=== PATIENT | male | born 1950 | race Caucasian/White ===

== ENCOUNTER 2019-09-26 11:23 | Observation (INO) | payer OTHER ==
[~2019-09-26] VITALS: Ht 177.8 cm; Wt 98.1 kg
[2019-09-26 12:06] LABS: BASOPHILS # (AUTO) 0.02 x10^3/uL (0-0.1); BASOPHILS % (AUTO) 1 % (0-1); EOSINOPHILS # (AUTO) 0.21 x10^3/uL (0-0.4); EOSINOPHILS % (AUTO) 5 % (1-7); LYMPHOCYTES # (AUTO) 1.39 x10^3/uL (1-3.4); LYMPHOCYTES % (AUTO) 36 % (22-44); MD NO; MEAN CORPUSCULAR HEMOGLOBIN 29.3 pg (27.5-34.5); MEAN CORPUSCULAR HGB CONC 33.5 g/dL (33.2-36.2); MEAN CORPUSCULAR VOLUME 87.5 fL (81-97); MONOCYTES % (AUTO) 8 % (2-9); NEUTROPHILS # (AUTO) 1.95 x10^3/uL (1.8-6.8); NEUTROPHILS % (AUTO) 50 % (42-75); PLATELET COUNT 141 x10^3/uL (130-400); RED BLOOD COUNT 4.81 x10^6/uL (4.38-5.82)
[2019-09-26 12:19] LABS: ALANINE AMINOTRANSFERASE 22 U/L (12-78); ALBUMIN 3.7 g/dL (3.4-5.0); ANION GAP 6 mmol/L (5-15); CALCIUM 9.1 mg/dL (8.5-10.1); CHLORIDE 106 mmol/L (98-107); CREATININE 1.18 mg/dL (0.7-1.3)
[2019-09-26 12:21] LABS: ALKALINE PHOSPHATASE 49 U/L (45-117); BILIRUBIN,TOTAL 1.1 mg/dL (0.2-1.0)
[2019-09-26] MEDS ORDERED: SODIUM CHLORIDE FLUSH 10ML SYR IVF ONE (13:00)
--- NOTE | 2019-09-26 13:31 | NUR ---
PT BIB [facility] FOR [facility]. FAMILY SAYS HE "GETS DIZZY AND THEN FALLS. AFTER THESE THINGS HAPPEN HE SEEMS CONFUSED FOR A WHILE BEFORE RETURNING TO BASELINE". PT WAS A0X1 FOR EMS. UPON ARRIVAL HE WAS AOX3. PT IS HOOKED UP TO TWISTER TENDER. BLANKET PROVIDED.
--- NOTE | 2019-09-26 14:22 | NUR ---
PT RESTING IN [facility]. ADMITTED DOCTOR IN ROOM AT THIS TIME
[2019-09-26] MEDS ORDERED: GLUCAGON 1 MG IM PRN (15:00)
[2019-09-26] MEDS ORDERED: DEXTROSE 4 GM TAB.CHEW PO PRN (15:00)
[2019-09-26] MEDS ORDERED: CYCLOBENZAPRINE 10 MG TABLET PO PRN (15:00)
[2019-09-26] MEDS ORDERED: GABAPENTIN 300 MG CAPSULE PO PRN (15:00)
[2019-09-26] MEDS ORDERED: NITROGLYCERIN 0.4 MG BOTTLE (25 TABS) SL PRN (15:00)
[2019-09-26] MEDS ORDERED: DEXTROSE 50%, 50ML SYRINGE IVPush PRN (15:00)
[2019-09-26] MEDS ORDERED: NITROGLYCERIN 0.4 MG/SPRAY SL PRN (15:00)
[2019-09-26] MEDS ORDERED: ACETAMINOPHEN 325 MG TABLET PO PRN (15:00)
[2019-09-26] MEDS: INSULIN LISPRO 100 UNITS/ML, PEN SQ-INSULIN SCH ×2 (16:00→21:38)
[2019-09-26 16:55] VITALS: BP 120/69
[2019-09-26 19:51] VITALS: BP 144/70
[2019-09-26] MEDS: SODIUM CHLORIDE FLUSH 10ML SYR IVF SCH ×2 (21:00→21:38)
[2019-09-26 21:20] VITALS: BP 136/72
[2019-09-26 21:25] VITALS: BP 109/65
[2019-09-26] MEDS ORDERED: DIVA500T17 PO (22:43)
[2019-09-26] MEDS ORDERED: POLY17PO PO (22:43)
[2019-09-26] MEDS ORDERED: METF500T27 PO (22:43)
[2019-09-26] MEDS ORDERED: MORP-29 PO ×2 (22:43)
[2019-09-26] MEDS ORDERED: CLOP75TA PO (22:43)
[2019-09-26] MEDS ORDERED: CHOL10003 PO (22:43)
[2019-09-26] MEDS ORDERED: DEXT15DR18 EACHEYE (22:43)
[2019-09-26] MEDS ORDERED: CYAN100028 PO (22:43)
[2019-09-26] MEDS ORDERED: NALO4SPR NS (22:43)
[2019-09-26] MEDS ORDERED: MELA3TAB56 PO (22:43)
[2019-09-26] MEDS ORDERED: ACET325T26 PO (22:43)
[2019-09-26] MEDS ORDERED: LIDO700A20 TD (22:43)
[2019-09-26] MEDS ORDERED: INSU100V8 SQ (22:43)
[2019-09-26] MEDS ORDERED: ROSU20TA2 PO (22:43)
[2019-09-26] MEDS ORDERED: ALBU90AE2 INH (22:43)
[2019-09-26] MEDS ORDERED: LEVO50TA5 PO (22:43)
[2019-09-26] MEDS ORDERED: INSU100C5 SQ-INSULIN (22:43)
[2019-09-27] MEDS ORDERED: morphine SULFATE 15 MG TAB.IR PO PRN
[2019-09-27] MEDS: DIVALPROEX 500 MG TAB.ER.24H PO SCH ×2 (00:04→17:16)
[2019-09-27 02:04] VITALS: BP 171/69
[2019-09-27 02:05] VITALS: BP_SYST 116; BP_SYST 122; BP_DIAS 72; BP_DIAS 73
[2019-09-27 02:31] LABS: MICROSCOPIC AUTO
[2019-09-27 02:32] LABS: CULTURE INDICATED? NO
[2019-09-27] MEDS: ASPIRIN 325 MG TABLET EC PO SCH (05:56)
[2019-09-27] MEDS: LEVOTHYROXINE 50 MCG TABLET PO SCH (05:57)
[2019-09-27] MEDS: INSULIN LISPRO 100 UNITS/ML, PEN SQ-INSULIN SCH ×4 (07:00→20:37)
[2019-09-27 07:24] VITALS: BP 168/75
[2019-09-27] MEDS: SODIUM CHLORIDE FLUSH 10ML SYR IVF SCH ×4 (08:00→20:37)
[2019-09-27] MEDS: CLOPIDOGREL 75 MG TABLET PO SCH (08:00)
[2019-09-27] MEDS: morphine SULFATE 15 MG TAB.IR PO SCH ×2 (08:11→20:36)
[2019-09-27 19:45] VITALS: BP 167/90
[2019-09-28 00:56] VITALS: BP 153/75
[2019-09-28] MEDS: LEVOTHYROXINE 50 MCG TABLET PO SCH (06:33)
[2019-09-28] MEDS: ASPIRIN 325 MG TABLET EC PO SCH (06:33)
[2019-09-28 06:47] VITALS: BP 133/77
[2019-09-28] MEDS: INSULIN LISPRO 100 UNITS/ML, PEN SQ-INSULIN SCH ×2 (07:00→11:23)
[2019-09-28] MEDS: morphine SULFATE 15 MG TAB.IR PO SCH (08:08)
[2019-09-28] MEDS: SODIUM CHLORIDE FLUSH 10ML SYR IVF SCH ×2 (08:09)
[2019-09-28] MEDS: CLOPIDOGREL 75 MG TABLET PO SCH (08:09)
== END 2019-09-28 14:30 | disposition home or self-care (01) ==
LOC: SUATTDRO 14:19 → ED 14:31 → EDIP 14:32 → ED 14:40 → 4EST 16:31 → DCLOUNGE 09-28 14:15
PROVIDERS: ADMIT Hospitalist; ATTEND Family Medicine
DX: R55 Syncope and collapse (principal); R29.6 Repeated falls; E66.9 Obesity, unspecified; R32 Unspecified urinary incontinence; R53.1 Weakness; F11.20 Opioid dependence, uncomplicated; E11.9 Type 2 diabetes mellitus without complications; I10 Essential (primary) hypertension; E78.5 Hyperlipidemia, unspecified; I25.10 Atherosclerotic heart disease of native coronary artery without angina pectoris; G90.8 Other disorders of autonomic nervous system; J44.9 Chronic obstructive pulmonary disease, unspecified; Z95.0 Presence of cardiac pacemaker; Z86.73 Personal history of transient ischemic attack (TIA), and cerebral infarction without residual deficits; Z91.81 History of falling; Z79.02 Long term (current) use of antithrombotics/antiplatelets; Z79.899 Other long term (current) drug therapy
CPT/HCPCS: 36415; 70450; 80053; 81001; 82962; 83735; 84443; 85025; 93005; 93306; 99285; G0378; J1815

== ENCOUNTER 2020-06-13 14:39 | Inpatient (IN) | payer OTHER ==
[~2020-06-13] VITALS: Ht 177.8 cm; Wt 98.0 kg
[~2020-06-13 14:39] MED LIST: ACET325T26 PO; ALBU90AE2 INH; CHOL10003 PO; CLOP75TA PO; CYAN100028 PO; DEXT15DR18 EACHEYE; DIVA500T17 PO; INSU100C5 SQ-INSULIN; INSU100V8 SQ; LEVO50TA5 PO; LIDO700A20 TD; MELA3TAB31 PO; METF500T27 PO; MORP-29 PO; NALO4SPR NS; POLY17PO PO; ROSU20TA2 PO
--- NOTE | 2020-06-13 15:09 | NUR ---
PT BIB EMS AFTER BEING FOUND DOWN AND UNRESPONSIVE BY FAMILY MEMBER. EMS ARRIVED ON SCENCE AND FOUND THE PTS BLOOD SUGAR TO BE 24. EMS ATTEMPTED IVs - UNSUCCESSFUL. CHECKED A SECOND SUGAR AND THE BLOOD SUGAR WAS 20. EMS THEN ADM 1MG GLUCAGON IM. PT SUGAR EDU TO 87. PT ARRIVED TO ER SLIGHTLY CONFUSED - STILL AOX4. BLOOD SUGAR UPON ARRIVAL WAS 80. RECTAL TEMP 93.9 - WARM BLANKETS PROVIDED. PT CONNECTED TO MONITORING EQUIPMENT.
--- NOTE | 2020-06-13 15:32 | NUR ---
PT PROVIDED WITH PEANUT BUTTER AND KLAUDIA SHAVER
[2020-06-13] MEDS ORDERED: SODIUM CHLORIDE FLUSH 10ML SYR IVF ONE (16:00)
[2020-06-13 16:22] LABS: BASOPHILS % (AUTO) 1 % (0-1); EOSINOPHILS % (AUTO) 1 % (1-7); LYMPHOCYTES % (AUTO) 20 % (22-44); MEAN CORPUSCULAR HEMOGLOBIN 28.4 pg (27.5-34.5); MEAN CORPUSCULAR HGB CONC 32.8 g/dL (33.2-36.2); MEAN PLATELET VOLUME 7.5 fL (7.4-10.4); MONOCYTES % (AUTO) 7 % (2-9); NEUTROPHILS % (AUTO) 71 % (42-75); PLATELET COUNT 168 x10^3/uL (130-400); RED BLOOD COUNT 5.05 x10^6/uL (4.38-5.82); RED CELL DISTRIBUTION WIDTH 15.9 % (9.4-14.8)
[2020-06-13 16:23] LABS: MD NO
[2020-06-13 16:25] LABS: ALANINE AMINOTRANSFERASE 33 U/L (12-78); ANION GAP 4 mmol/L (5-15); CALCIUM 8.8 mg/dL (8.5-10.1); CHLORIDE 109 mmol/L (98-107); CREATININE 1.34 mg/dL (0.7-1.3)
[2020-06-13 16:27] LABS: ALKALINE PHOSPHATASE 61 U/L (45-117); BILIRUBIN,TOTAL 0.5 mg/dL (0.2-1.0); TOTAL PROTEIN 7.4 g/dL (6.4-8.2)
--- NOTE | 2020-06-13 16:43 | NUR ---
PT RESTING IN [facility]. VSS. NAD.
[2020-06-13 17:03] LABS: MICROSCOPIC AUTO
[2020-06-13] MEDS ORDERED: CARV3.122 PO (17:15)
[2020-06-13] MEDS ORDERED: CHOLECALCIFEROL PO (17:16)
[2020-06-13] MEDS ORDERED: CLOP75TA PO (17:21)
[2020-06-13] MEDS ORDERED: INSU100I13 SQ (17:21)
[2020-06-13] MEDS ORDERED: INSULIN ASPART (17:21)
[2020-06-13] MEDS ORDERED: GUAI5LIQ PO (17:21)
[2020-06-13] MEDS ORDERED: EMPA25TA PO (17:21)
[2020-06-13] MEDS ORDERED: LEVO50TA5 PO (17:26)
[2020-06-13] MEDS ORDERED: TAMS-11 PO (17:26)
[2020-06-13] MEDS ORDERED: METF500T17 PO (17:26)
[2020-06-13] MEDS ORDERED: ROSUVASTATIN PO (17:26)
[2020-06-13] MEDS ORDERED: morphine PO (17:26)
[2020-06-13] MEDS ORDERED: LISI-167 PO (17:26)
[2020-06-13] MEDS ORDERED: MELA3TAB31 PO (17:26)
[2020-06-13] MEDS ORDERED: POLYETHYLENE GLYCOL 17 GM PACKET PO PRN (18:00)
[2020-06-13] MEDS ORDERED: ONDANSETRON 2MG/ML, 2ML IVPush PRN (18:00)
[2020-06-13] MEDS ORDERED: MELATONIN 5 MG TABLET PO PRN (18:00)
[2020-06-13] MEDS ORDERED: ACETAMINOPHEN 325 MG TABLET PO PRN (18:00)
[2020-06-13] MEDS ORDERED: HYPROMELLOSE EACHEYE PRN (18:30)
[2020-06-13] MEDS ORDERED: DEXTRAN 70 EACHEYE PRN (18:30)
[2020-06-13 19:00] VITALS: BP 124/74
[2020-06-13] MEDS ORDERED: ALBUTEROL HFA 90 MCG/SPRAY INH PRN (19:00)
[2020-06-13] MEDS: DIVALPROEX 500 MG TAB.ER.24H PO SCH (20:56)
[2020-06-13] MEDS: CARVEDILOL 3.125 MG TABLET PO SCH (20:57)
[2020-06-13] MEDS: ENOXAPARIN 40 MG/0.4 ML SQ SCH (20:57)
[2020-06-13] MEDS: D5%-0.9% NACL 1,000 ML IV SCH (20:58)
[2020-06-13] MEDS: INSULIN LISPRO 100 UNITS/ML, PEN SQ-INSULIN SCH (21:00)
[2020-06-14 01:14] VITALS: BP 121/74
[2020-06-14] MEDS: INSULIN LISPRO 100 UNITS/ML, PEN SQ-INSULIN SCH ×4 (06:30→20:43)
[2020-06-14 07:09] VITALS: BP 103/50
[2020-06-14] MEDS: SENNA/DOCUSATE TABLET PO SCH (09:00)
[2020-06-14] MEDS: CYANOCOBALAMIN 1,000 MCG TABLET PO SCH (09:43)
[2020-06-14] MEDS: CHOLECALCIFEROL 1,000 UNIT TABLET PO SCH (09:43)
[2020-06-14] MEDS: DIVALPROEX 500 MG TAB.ER.24H PO SCH ×2 (09:44→20:23)
[2020-06-14] MEDS: CARVEDILOL 3.125 MG TABLET PO SCH ×2 (09:44→20:25)
[2020-06-14] MEDS: TAMSULOSIN 0.4 MG CAP.ER.24H PO SCH (09:44)
[2020-06-14] MEDS: CLOPIDOGREL 75 MG TABLET PO SCH (09:44)
[2020-06-14] MEDS: LEVOTHYROXINE 50 MCG TABLET PO SCH (09:44)
[2020-06-14 12:01] VITALS: BP 147/84
[2020-06-14] MEDS: D5%-0.9% NACL 1,000 ML IV SCH (15:33)
[2020-06-14 20:20] VITALS: BP 120/65
[2020-06-14] MEDS: ENOXAPARIN 40 MG/0.4 ML SQ SCH (20:25)
[2020-06-15 00:57] VITALS: BP 134/75
[2020-06-15] MEDS: INSULIN LISPRO 100 UNITS/ML, PEN SQ-INSULIN SCH ×3 (07:00→16:00)
[2020-06-15 07:30] VITALS: BP 141/76
[2020-06-15] MEDS: DIVALPROEX 500 MG TAB.ER.24H PO SCH (10:55)
[2020-06-15] MEDS: LEVOTHYROXINE 50 MCG TABLET PO SCH (10:55)
[2020-06-15] MEDS: CHOLECALCIFEROL 1,000 UNIT TABLET PO SCH (10:55)
[2020-06-15] MEDS: CYANOCOBALAMIN 1,000 MCG TABLET PO SCH (10:56)
[2020-06-15] MEDS: CLOPIDOGREL 75 MG TABLET PO SCH (10:56)
[2020-06-15] MEDS: TAMSULOSIN 0.4 MG CAP.ER.24H PO SCH (10:56)
[2020-06-15] MEDS: CARVEDILOL 3.125 MG TABLET PO SCH (10:56)
[2020-06-15] MEDS: SENNA/DOCUSATE TABLET PO SCH (10:57)
[2020-06-15 14:15] VITALS: BP 137/76
== END 2020-06-15 18:28 | disposition home or self-care (01) | DRG 638 ==
LOC: EDBD 14:39 → ED 17:31 → MERGE 17:31 → EDIP 17:52 → INTOOBSV 17:52 → 4NE 18:31 → OBSVTOIN 06-14 07:44
PROVIDERS: ADMIT Internal Medicine; ATTEND Family Medicine
DX: E11.641 Type 2 diabetes mellitus with hypoglycemia with coma (principal); F11.20 Opioid dependence, uncomplicated; E03.9 Hypothyroidism, unspecified; E11.40 Type 2 diabetes mellitus with diabetic neuropathy, unspecified; N28.9 Disorder of kidney and ureter, unspecified; N40.0 Benign prostatic hyperplasia without lower urinary tract symptoms; I25.10 Atherosclerotic heart disease of native coronary artery without angina pectoris; Z79.02 Long term (current) use of antithrombotics/antiplatelets; Z79.4 Long term (current) use of insulin; Z87.891 Personal history of nicotine dependence; I25.2 Old myocardial infarction; Z86.73 Personal history of transient ischemic attack (TIA), and cerebral infarction without residual deficits; Z83.3 Family history of diabetes mellitus; Z83.6 Family history of other diseases of the respiratory system
CPT/HCPCS: 96374; 96376; 99285; J7042; 71045; 80053; 81001; 82962; 83036; 83605; 84443; 85025; 87040; 93005; G0378; J1650; J1815